=== PATIENT | female | born 1965 ===

== ENCOUNTER 2018-02-28 18:37 | Emergency (ER) | payer OTHER ==
[2018-02-28 19:19] VITALS: BP 144/88; PULSE 74; RESP 18; TEMP 98.4; O2SAT 99
[2018-02-28] MEDS ORDERED: Sodium Chloride 0.9% 1,000 ML IV STA (19:59)
[2018-02-28 20:41] LABS: BASO # 0.1 K/uL (0.0-0.2); BASO % 0.5 % (0.0-2.0); EOS # 0.1 K/uL (0.0-0.7); EOS % 1.1 % (0.0-4.0); HEMOGLOBIN 13.5 g/dL (12.0-16.0); LYMPH # 3.1 K/uL (1.0-4.3); LYMPH % 25.1 % (20.0-40.0); MEAN CELL VOLUME 84.9 fl (81.0-99.0); MEAN CORPUSCULAR HEMOGLOBIN 27.7 pg (27.0-31.0); MEAN CORPUSCULAR HGB CONC 32.6 g/dL (33.0-37.0); MEAN PLATELET VOLUME 9.8 fl (7.2-11.7); MONO # 0.6 K/uL (0.0-0.8); MONO % 5.2 % (0.0-10.0); NEUT # 8.5 K/uL (1.8-7.0); NEUT % 68.1 % (50.0-75.0); RBC 4.88 Mil/uL (3.80-5.20); RED CELL DISTRIBUTION WIDTH 13.2 % (11.5-14.5); WHITE BLOOD COUNT 12.5 K/uL (4.8-10.8)
--- NOTE | 2018-02-28 20:55 | ED PDOC ---
HPI: Abdomen Time Seen by Provider: 02/28/18 19:41 Chief Complaint (Nursing): Abdominal Pain Chief Complaint (Provider): Abdominal Pain History Per: Patient History/Exam Limitations: no limitations Current Symptoms Are (Timing): Constant Additional Complaint(s): Nicanor is a 52 year old female, with a history of high cholesterol, who presents to the ED complaining of LLQ and left flank for 1 week. Patient reports LLQ pain radiates to left lower back. Describes pain as constant. No vomiting, diarrhea, hematuria or fever. Patient reports urinary frequency. Patient reports every time she eats, she gets bowel movement. PMD: [place] Past Medical History Reviewed: Historical Data, Nursing Documentation, Vital Signs Vital Signs: Last Vital Signs Temp 98.4 F 02/28/18 19:16 Pulse 74 02/28/18 19:16 Resp 18 02/28/18 19:16 BP 144/88 02/28/18 19:16 Pulse Ox 99 02/28/18 22:06 - Medical History PMH: Hypercholesterolemia - Surgical History Surgical History: - Family History Family History: States: Unknown Family Hx - Social History Current smoker - smoking cessation education provided: No Alcohol: None Drugs: Denies - Immunization History Hx Tetanus Toxoid Vaccination: No Hx Influenza Vaccination: No Hx Pneumococcal Vaccination: No - Home Medications Home Medications: Ambulatory Orders Medication Instructions Recorded Naproxen [Naprosyn] 500 mg PO Q12H #20 tab 08/27/15 AMPicillin 10/09/17 Naproxen 500 mg PO BID PRN #14 tab 10/09/17 Cyclobenzaprine [Cyclobenzaprine 10 mg PO TID PRN #15 tab 03/01/18 HCl] Naproxen 500 mg PO BID #20 tablet. 03/01/18 - Allergies Allergies/Adverse Reactions: Allergies Allergy/AdvReac Type Severity Reaction Status Date / Time No Known Allergies Allergy Verified 10/09/17 10:36 Review of Systems ROS Statement: Except As Marked, All Systems Reviewed And Found Negative Constitutional: Negative for: Fever Gastrointestinal: Positive for: Abdominal Pain (LLQ pain), Other (Left flank pain). Negative for: Vomiting, Diarrhea Genitourinary Female: Positive for: Frequency. Negative for: Hematuria Physical Exam - Reviewed Nursing Documentation Reviewed: Yes Vital Signs Reviewed: Yes - Physical Exam Appears: Positive for: Non-toxic Head Exam: Positive for: ATRAUMATIC, NORMAL INSPECTION, NORMOCEPHALIC Skin: Positive for: Normal Color, Warm, Dry Eye Exam: Positive for: Normal appearance, EOMI, PERRL ENT: Positive for: Normal ENT Inspection Neck: Positive for: Normal Cardiovascular/Chest: Positive for: Regular Rate, Rhythm Respiratory: Positive for: Normal Breath Sounds. Negative for: Respiratory Distress Gastrointestinal/Abdominal: Positive for: Soft, Tenderness (LLQ ). Negative for : Distended Back: Positive for: Other (Left lower back tenderness). Negative for: L CVA Tenderness, R CVA Tenderness Extremity: Positive for: Normal ROM. Negative for: Deformity Neurologic/Psych: Positive for: Alert, Oriented (x 3) - Laboratory Results Result Diagrams: 02/28/18 20:35 02/28/18 20:35 Urine POC: Negative - ECG O2 Sat by Pulse Oximetry: 99 (RA) Pulse Ox Interpretation: Normal Medical Decision Making Medical Decision Making: Time: 19:57 Impression(s): LLQ Pain, Left flank pain, frequent urination, kidney stones, UTI , Musculoskeletal pain, diverticulitis Plan: - CT Abdomen and Pelvis IV Contrast - BMP - ED Urine Dipstick - CBC - Sodium Chloride 0.9% 1,000 ml IV 1,000 mls/hr - Toradol 30 mg IVP ONCE (-) Hematology WBC: 12.5 K/uL [high] Scribe Attestation: Documented by Buck Queen, acting as a scribe for Staci Jackson MD. Provider Scribe Attestation: All medical record entries made by the Scribe were at my direction and personally dictated by me. I have reviewed the chart and agree that the record accurately reflects my personal performance of the history, physical exam, medical decision making, and the department course for this patient. I have also personally directed, reviewed, and agree with the discharge instructions and disposition. Disposition - Clinical Impression Clinical Impression: Abdominal pain, Back pain - Patient ED Disposition Is Patient to be Admitted: No Doctor Will See Patient In The: Office Counseled Patient/Family Regarding: Studies Performed, Diagnosis, Need For Followup - Disposition Referrals: [facility] [Outside] Disposition: Routine/Home Disposition Time: 00:18 Condition: GOOD Additional Instructions: Take your medications as instructed. Follow up with your PCP in 2-3 days. Prescriptions: Cyclobenzaprine [Cyclobenzaprine HCl] 10 mg PO TID PRN #15 tab PRN Reason: Muscle Spasm Naproxen 500 mg PO BID #20 tablet.dr Instructions: Low Back Pain (DC), Acute Abdomen (Belly Pain)
[2018-02-28 21:19] LABS: CALCIUM 9.4 mg/dL (8.4-10.2); GFR AFRICAN-AMERICAN > 60; GFR NON-AFRICAN AMERICAN > 60
[2018-02-28 21:22] LABS: BLOOD UREA NITROGEN 15 mg/dl (7-17)
[2018-02-28] MEDS ORDERED: Iohexol 300 100 ML IJ ONE (21:23)
--- NOTE | 2018-03-01 10:53 | CT ---
PROCEDURE: CT Abdomen and Pelvis with contrast HISTORY: Left lower quadrant pain COMPARISON: None. TECHNIQUE: CT scan of the abdomen and pelvis was performed after administration of intravenous contrast. Oral contrast was not administered. Coronal and sagittal reformatted images were obtained. Contrast dose: 90 mL Omnipaque Radiation dose: Total exam DLP = 423.54 mGy-cm. This CT exam was performed using one or more of the following dose reduction techniques: Automated exposure control, adjustment of the mA and/or kV according to patient size, and/or use of iterative reconstruction technique. FINDINGS: LOWER THORAX: The lung bases are clear. LIVER: There is mild hepatomegaly and diffuse fatty infiltration in the liver. No gross lesion or ductal dilatation. GALLBLADDER AND BILE DUCTS: No calcified gallstones. PANCREAS: Normal in size with homogeneous enhancement. No gross lesion or ductal dilatation. SPLEEN: Normal in size and appearance. ADRENALS: There is thickening of the left adrenal gland. No discrete nodule in the adrenal glands. KIDNEYS AND URETERS: Both kidneys are normal in size with homogeneous enhancement. No hydronephrosis. A tiny subcentimeter low density lesion in the lower pole of the right kidney is too small to characterize by CT criteria but may represent a small cyst. VASCULATURE: No aortic aneurysm. BOWEL: The small bowel loops are normal in caliber. There is moderate amount of stool in the colon. No bowel dilatation or obstruction. APPENDIX: Normal appendix. PERITONEUM: No free fluid. No free air. LYMPH NODES: No enlarged lymph nodes. BLADDER: Normal in appearance. REPRODUCTIVE: U the uterus is normal in size. BONES: No acute fracture. Within normal limits for the patient's age. OTHER FINDINGS: None. IMPRESSION: No acute abdominal or pelvic abnormality. Constipation. No evidence of bowel obstruction. A preliminary report was provided by [facility].
== END 2018-03-01 00:31 | disposition home or self-care (01) ==
LOC: H.ER 18:37
DX: R10.32 Left lower quadrant pain (principal); M54.9 Dorsalgia, unspecified; E78.00 Pure hypercholesterolemia, unspecified
CPT/HCPCS: 74177; 80048; 81025; 85025; 96361; 96374; 99284; J1885; J7040; Q9967